=== PATIENT | male | born 1975 | race Two or more races ===

== ENCOUNTER 2023-04-30 18:21 | Emergency (ER) | payer SELFPAY ==
[~2023-04-30] VITALS: Ht 177.8 cm; Wt 90.4 kg
[2023-04-30 19:28] LABS: BASOPHILS % (AUTO) 0.8 % (0.0-2.0); EOSINOPHILS % (AUTO) 0.3 % (1.0-6.0); HEMATOCRIT 42.7 % (41-53); HEMOGLOBIN 14.4 g/dL (13.5-17.5); LYMPHOCYTES # (AUTO) 1.3 K/uL (1.0-4.8); LYMPHOCYTES % (AUTO) 24.9 % (22.0-44.0); MEAN CORPUSCULAR HEMOGLOBIN 29.3 pg (26.0-34.0); MEAN CORPUSCULAR HGB CONC 33.7 G/dL (31.0-37.0); MEAN CORPUSCULAR VOLUME 87 fL (80-100); MONOCYTES # (AUTO) 0.6 K/uL (0.1-1.0); MONOCYTES % (AUTO) 10.9 % (2.0-9.0); NEUTROPHILS # (AUTO) 3.4 K/uL (1.8-7.7); NEUTROPHILS % (AUTO) 63.1 % (40.0-70.0); PLATELET COUNT (AUTO) 217 K/uL (150-450); RED BLOOD CELL COUNT(AUTO) 4.92 MIL/uL (4.50-5.90); RED CELL DISTRIBUTION WIDTH 13.6 % (11.5-14.5)
[2023-04-30 19:31] LABS: CALCIUM, TOTAL 9.3 mg/dL (8.8-10.5); CREATININE 1.31 mg/dL (0.60-1.30); POTASSIUM 4.1 mmol/L (3.5-5.1)
[2023-04-30 19:37] LABS: ALBUMIN 4.1 g/dL (3.4-5.0); BILIRUBIN,TOTAL 0.5 mg/dL (0.1-1.0)
[2023-04-30] MEDS ORDERED: SODIUM CHLORIDE 0.9% 1,000 ML IV ONE (22:15)
[2023-04-30 23:39] VITALS: BP 122/77; PULSE 63; RESP 18; TEMP 98.1
== END 2023-05-01 03:19 | disposition home or self-care (01) ==
LOC: EMS 18:31
DX: R42 Dizziness and giddiness (principal); E86.0 Dehydration
CPT/HCPCS: 80053; 83690; 84484; 85025; 93005; 96360; 99284; 36415-L1; 36415-TC